=== PATIENT | male | born 1940 | race African-American/Black ===

== ENCOUNTER 2018-04-01 17:30 | Inpatient (IN) | payer MEDICARE, MEDICAID ==
[~2018-04-01] VITALS: Ht 175.3 cm; Wt 96.6 kg
[~2018-04-01 17:30] MED LIST: AMIT25TA9 PO; AMLO10TA80 PO; ASPI-1160 PO; CILO100T PO; COLC0.6T66 PO; DOCU-150 PO; GABA-533 PO; ISOS60TA4 PO; LOVA40TA73 PO; METO100T16 PO; OMEP40CA34 PO; POTA20TA12 PO; TRIA1CAP6 PO
[2018-04-01] MEDS ORDERED: MORPHINE SULFATE 4 MG/ML CPJ (NOT FOR IM USE) IV ONE (18:15)
[2018-04-01] MEDS ORDERED: NITROGLYCERIN OINT 1GM/INCH UDPKT TD ONE (18:15)
[2018-04-01] MEDS ORDERED: ASPIRIN 81MG EC TABLET PO ONE (18:15)
[2018-04-01] MEDS ORDERED: ONDANSETRON HCL 4MG/2ML VIAL IV ONE (18:15)
[2018-04-01 18:26] LABS: BASOPHILS % 0.4 % (0.0-2.0); EOSINOPHILS % 0.3 % (0.0-5.0); HEMATOCRIT. 42.1 % (42.0-52.0); LYMPHOCYTES % 13.5 % (20.0-50.0); MEAN CORPUSCULAR HEMOGLOBIN 30.6 pg (28.0-32.0); MEAN CORPUSCULAR VOLUME 92.2 fL (80.0-94.0); MEAN PLATELET VOLUME 7.6 fl (7.4-10.4); MONOCYTES % 11.3 % (2.0-8.0); NEUTROPHILS % 74.5 % (40.0-76.0); PLATELET 289 x1000/uL (130-400); RED BLOOD CELL COUNT 4.57 mill/uL (4.7-6.1); RED CELL DISTRIBUTION WIDTH 16.8 % (11.6-14.6)
[2018-04-01 18:29] LABS: CHLORIDE 101 mEq/L (98-107); PROTHROMBIN TIME 10.2 sec (9.1-11.1)
[2018-04-01 18:40] LABS: T4 FREE 1.06 ng/dL (0.76-1.46)
[2018-04-01 19:42] LABS: CLARITY URINE CLEAR (CLEAR); COLOR URINE YELLOW (YELLOW); KETONES URINE TRACE (NEGATIVE); LEUKOCYTE ESTERASE URINE NEGATIVE (NEGATIVE); NITRITE URINE NEGATIVE (NEGATIVE); OCCULT BLOOD URINE NEGATIVE (NEGATIVE); PH URINE 8.5 (4.5-8.0); PROTEIN URINE NEGATIVE (NEGATIVE); SPECIFIC GRAVITY URINE 1.021 (1.005-1.030)
[2018-04-01] MEDS ORDERED: ACETAMINOPHEN 325MG TABLET PO PRN (23:00)
[2018-04-01] MEDS ORDERED: ENOXAPARIN 40MG/0.4ML SYR SUBCUT SCH (23:00)
[2018-04-01] MEDS ORDERED: IPRATROPIUM/ALBUTEROL 0.5-3(2.5)MG/3ML NEB INH PRN (23:00)
[2018-04-01] MEDS ORDERED: ONDANSETRON HCL 4MG/2ML VIAL IV PRN (23:00)
[2018-04-02] VITALS (7 sets, daily range): BP systolic 130–170; BP diastolic 72–83
[2018-04-02] MEDS ORDERED: ONDANSETRON 4MG ODT PO PRN (00:45)
[2018-04-02] MEDS: MORPHINE SULFATE 4 MG/ML CPJ (NOT FOR IM USE) IV PRN ×3 (01:20→22:59)
[2018-04-02] MEDS ORDERED: CLOP75TA33 PO (04:49)
[2018-04-02] MEDS ORDERED: ATOR40TA70 PO (04:52)
[2018-04-02] MEDS ORDERED: LEVA15HF6 IH (04:52)
[2018-04-02 06:29] LABS: *AMPHETAMINES SCREEN URINE NEGATIVE (NEGATIVE); *BARBITURATES SCREEN URINE NEGATIVE (NEGATIVE)
[2018-04-02 06:30] LABS: *BENZODIAZEPINES SCREEN URINE NEGATIVE (NEGATIVE); *COCAINE SCREEN URINE NEGATIVE (NEGATIVE); METHADONE URINE SCREEN NEGATIVE (NEGATIVE); OPIATES URINE SCREEN PRESUMTIVE POSITIVE (NEGATIVE); PHENCYCLIDINE URINE SCREEN NEGATIVE (NEGATIVE)
[2018-04-02 06:31] LABS: CANNABINOID URINE SCREEN NEGATIVE (NEGATIVE)
[2018-04-02 08:15] LABS: BASOPHILS % 0.5 % (0.0-2.0); EOSINOPHILS % 0.9 % (0.0-5.0); HEMOGLOBIN. 13.9 g/dL (14.0-18.0); LYMPHOCYTES % 12.9 % (20.0-50.0); MEAN CORPUSCULAR HEMOGLOBIN 30.7 pg (28.0-32.0); MEAN CORPUSCULAR VOLUME 92.6 fL (80.0-94.0); MEAN PLATELET VOLUME 7.8 fl (7.4-10.4); MONOCYTES % 13.9 % (2.0-8.0); NEUTROPHILS % 71.8 % (40.0-76.0); PLATELET 270 x1000/uL (130-400); RED BLOOD CELL COUNT 4.53 mill/uL (4.7-6.1); RED CELL DISTRIBUTION WIDTH 16.9 % (11.6-14.6)
[2018-04-02] MEDS: ENOXAPARIN 30MG/0.3ML SYR SUBCUT SCH ×2 (09:11→21:19)
[2018-04-02] MEDS: ASPIRIN 81MG TABLET PO SCH (09:12)
[2018-04-02] MEDS: COLCHICINE 0.6MG TABLET PO SCH (09:12)
[2018-04-02] MEDS: AMLODIPINE 10MG TABLET PO SCH (09:12)
[2018-04-02] MEDS: POTASSIUM CHLORIDE 20MEQ TABLET SR PO SCH ×2 (09:12→17:48)
[2018-04-02] MEDS ORDERED: METOPROLOL TARTRATE 25MG TABLET PO SCH (10:30)
[2018-04-02] MEDS: ISOSORBIDE MONONITRATE 60MG TABLET SR 24HR PO SCH (10:43)
[2018-04-02] MEDS: CLOPIDOGREL 75MG TABLET PO SCH (10:44)
[2018-04-02 12:06] LABS: CHLORIDE 103 mEq/L (98-107)
[2018-04-02 12:23] LABS: PHOSPHORUS 3.1 mg/dL (2.5-4.9)
[2018-04-02 12:26] LABS: CREATINE KINASE 65 IU/L (39-308)
[2018-04-02 12:29] LABS: CREATINE KINASE MB FRACTION 0.7 ng/mL (0.5-3.6)
[2018-04-02] MEDS: LORAZEPAM 2MG/ML CPJ IV PRN (13:35)
[2018-04-02 15:53] LABS: CREATINE KINASE 66 IU/L (39-308)
[2018-04-02 15:54] LABS: CREATINE KINASE MB FRACTION 1.2 ng/mL (0.5-3.6)
[2018-04-02] MEDS: IPRATROPIUM/ALBUTEROL 0.5-3(2.5)MG/3ML NEB HHN SCH ×2 (15:59→21:21)
[2018-04-02] MEDS: BUDESONIDE 0.5MG/2ML NEB HHN SCH ×2 (15:59→21:22)
[2018-04-02] MEDS ORDERED: ATORVASTATIN CALCIUM 40MG TABLET PO SCH (21:00)
[2018-04-02] MEDS: METOPROLOL TARTRATE 100MG TABLET PO SCH (21:17)
[2018-04-03] VITALS: BP 166/89
[2018-04-03] MEDS: IPRATROPIUM/ALBUTEROL 0.5-3(2.5)MG/3ML NEB HHN SCH ×3 (01:29→13:28)
[2018-04-03] MEDS: LORAZEPAM 2MG/ML CPJ IV PRN (03:23)
[2018-04-03] MEDS: MORPHINE SULFATE 4 MG/ML CPJ (NOT FOR IM USE) IV PRN (03:26)
[2018-04-03] MEDS: DOCUSATE SODIUM 100MG CAPSULE PO PRN ×2 (03:31→03:35)
[2018-04-03 04:00] VITALS: BP 148/73
[2018-04-03 06:47] LABS: HEMATOCRIT. 40.1 % (42.0-52.0); HEMOGLOBIN. 13.5 g/dL (14.0-18.0); MEAN CORPUSCULAR VOLUME 91.9 fL (80.0-94.0); MEAN PLATELET VOLUME 7.8 fl (7.4-10.4); PLATELET 272 x1000/uL (130-400); RED BLOOD CELL COUNT 4.36 mill/uL (4.7-6.1); RED CELL DISTRIBUTION WIDTH 16.5 % (11.6-14.6)
[2018-04-03 06:54] LABS: CHLORIDE 98 mEq/L (98-107)
[2018-04-03 07:08] LABS: LDL CHOLESTEROL 67 mg/dL (5-100)
[2018-04-03 07:10] LABS: HDL CHOLESTEROL 54 mg/dL (40-59)
[2018-04-03 08:00] VITALS: BP 150/80
[2018-04-03] MEDS: BUDESONIDE 0.5MG/2ML NEB HHN SCH (08:23)
[2018-04-03 08:40] LABS: PLATELET ESTIMATE NORMAL
[2018-04-03 10:00] VITALS: BP 121/73
[2018-04-03] MEDS: COLCHICINE 0.6MG TABLET PO SCH (10:29)
[2018-04-03] MEDS: CLOPIDOGREL 75MG TABLET PO SCH (10:29)
[2018-04-03] MEDS: AMLODIPINE 10MG TABLET PO SCH (10:30)
[2018-04-03] MEDS: POTASSIUM CHLORIDE 20MEQ TABLET SR PO SCH (10:32)
[2018-04-03] MEDS: ISOSORBIDE MONONITRATE 60MG TABLET SR 24HR PO SCH (10:33)
[2018-04-03] MEDS: METOPROLOL TARTRATE 100MG TABLET PO SCH (10:33)
[2018-04-03] MEDS: ASPIRIN 81MG TABLET PO SCH (10:33)
[2018-04-03] MEDS: ENOXAPARIN 30MG/0.3ML SYR SUBCUT SCH (10:33)
[2018-04-03 12:00] VITALS: BP 120/70
[2018-04-03 16:00] VITALS: BP 120/70
== END 2018-04-03 17:35 | disposition home or self-care (01) | DRG 291 ==
LOC: EDBEDREQ 17:53 → EDBEDREQSVC 18:51 → EDBEDREQTM 18:51 → EDBEDREQ 18:51 → ER 20:57 → 7WST 22:28 → ENRESERV 22:28 → SUPCPDRO 22:46
PROVIDERS: ADMIT Internal Medicine Nephrology; ATTEND Internal Medicine Nephrology
DX: I11.0 Hypertensive heart disease with heart failure (principal); J96.20 Acute and chronic respiratory failure, unspecified whether with hypoxia or hypercapnia; I50.33 Acute on chronic diastolic (congestive) heart failure; E78.5 Hyperlipidemia, unspecified; L91.0 Hypertrophic scar; R07.89 Other chest pain; J43.9 Emphysema, unspecified; K21.9 Gastro-esophageal reflux disease without esophagitis; E11.9 Type 2 diabetes mellitus without complications; E78.00 Pure hypercholesterolemia, unspecified; I25.10 Atherosclerotic heart disease of native coronary artery without angina pectoris; Z82.49 Family history of ischemic heart disease and other diseases of the circulatory system; Z95.5 Presence of coronary angioplasty implant and graft; Z88.1 Allergy status to other antibiotic agents; Z88.8 Allergy status to other drugs, medicaments and biological substances; Z85.46 Personal history of malignant neoplasm of prostate; Z79.82 Long term (current) use of aspirin; Z79.899 Other long term (current) drug therapy
CPT/HCPCS: 36415; 71045; 80048; 80053; 80061; 80305; 81003; 82550; 82553; 83690; 83735; 83880; 84100; 84439; 84481; 84484; 85025; 85610; 93005; 93306; 96374; 96375; 97162; 99291; J1650; J2060; J2270; J2405; J7620; J7626